=== PATIENT | female | born 1940 | race Caucasian/White ===

== ENCOUNTER 2023-09-13 15:33 | Emergency (ER) | payer OTHER, BC ==
[2023-09-13 16:09] VITALS: BP 151/85; PULSE 75; RESP 18; TEMP 98.4; BMI 23.1
[2023-09-13] MEDS ORDERED: LIDOCAINE 5% TOPICAL PATCH TP ONE (16:27)
[2023-09-13] MEDS ORDERED: LIDOCAINE 5% TOPICAL PATCH ONE (16:32)
[2023-09-13] MEDS ORDERED: LIDOCAINE PATCH REMOVAL MC SCH (22:00)
== END 2023-09-13 18:09 | disposition home or self-care (01) ==
LOC: FER 15:33
DX: M54.50 Low back pain, unspecified (principal); W10.9XXA Fall (on) (from) unspecified stairs and steps, initial encounter; Y93.01 Activity, walking, marching and hiking
CPT/HCPCS: 72100-TC-FY; 81003; 81015; 87086; 99284-25